=== PATIENT | female | born 1985 | race Caucasian/White ===

== ENCOUNTER 2017-01-20 22:13 | Emergency (ER) | payer SELFPAY ==
[~2017-01-20] VITALS: Ht 157.5 cm; Wt 65.8 kg
[~2017-01-20 22:13] MED LIST: AMOXIL500 MG PO; BACTRIM DS 8001 TAB PO; DICLOFENAC 50MG50 MG PO; FLEXERIL10 MG OR; IBUPROFEN400 MG PO; KEFLEX 500MG.500 MG PO; LOMOTIL 2.5MG.2.5 MG OR; LORTAB 5/500 501 TAB PO; LORTAB 500 MG-71 TAB PO; MOTRIN800 MG PO; NADOLOL 20 MG T20 MG PO; NAPROSYN 500MG500 MG PO; NOMEDS *; TAMIFLU 75MG CA75 MG PO
--- NOTE | 2017-01-20 23:41 | Emergency Room Report ---
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 N Clinical Suspician of Infection? N Mental Status: 1 - Regular (Normal Baseline) Sepsis Risk:Low Sepsis Risk Have you (or family members/close friends) recently traveled outside the [place]? N If Yes, where/when: Have you had exposure to infectious disease within the past month? N TB? Other? Specify: Source patient, RN notes reviewed, police, EMS, old records Exam Limitations no limitations Comment pt with nasal heroin and was given narcamn and is at baseline at this time Cardiac Chest Pain Chest pain indicative of cardiac No Timing/Duration this evening Severity moderate ALLERGIES Coded Allergies: azithromycin (From ZITHROMAX) (Mild, RESP 01/20/17) Home Medications Reported Medications No Known Home Medications History Medical History General CAD? No Angina: No [place]: No Hypertension? No Hyperlipidemia? No CHF? No DVT? No PE? No COPD? No Asthma? No Anemia? No GERD? No Gastric ulcers? No GI Bleed? No Hernia? No Thyroid Problems? No Hypothyroidism? No CVA? No Seizures? No Diabetes? No Renal Insuffiency? No End Stage Renal Disease? No UTI? No Stones? No BPH? No GB Disease: No Nephritic Syndrome? No Asplenia? No Hepatitis? No Sickle Cell Disease? No Arthritis? No Migraines? No Cataracts? No Glaucoma? No MRSA? No HIV? No TB? No Anxiety? Yes Depression? Yes Cancer? No More? 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 Respiratory denies cough, denies shortness of breath, denies wheezing Cardiovascular denies chest pain, denies palpitations, denies syncope Gastrointestinal denies abdominal pain, denies diarrhea, denies vomiting Genitourinary denies: dysuria, frequency, hesitancy, hematuria. Musculoskeletal denies back pain, denies joint pain, denies joint swelling, denies neck pain Skin denies rash Psychiatric/Neurological denies anxiety, denies seizure Physical Exam Vital Signs Vital Signs Date Time Temp Pulse Resp B/P Pulse O2 O2 Flow FiO2 Ox Delivery Rate 01/206 98.3 86 14 124/85 95 01/20 2215 98.3 86 14 124/85 95 - WBC >12,000 or <4,000 or 10% bands? 2 or more SIRS Criteria Met? B/P:124/85 MAP:98 Creatinine >2.0? UA output<0.5ml/kg/hr for 2 hrs? Platelet count >100,000? Lactate >2.0mmol/1? INR >1.2 or PTT > than 60 sec? Evidence of Organ Dysfunction? Provider documented clinical suspician of infection? N Sepsis Criteria Count: 0 Sepsis Risk: Low Sepsis Risk General Appearance no apparent distress Eye Exam - bilateral eye PERRL, bilateral eye EOMI Ear, Nose, Throat normal ENT inspection, no icterus Neck supple Respiratory Status No: respiratory distress. Lung Sounds bilateral: lungs clear. 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 No Results/Orders Orders Procedure Date/time Status URINALYSIS/COMPLETE 01/20 2318 Active DRUG ABUSE SCREEN (TRIAGE) 01/20 2318 Active Departure Departure Time of Disposition 2335 Disposition DC Home or Self Care(routine) Clinical Impression Primary Impression: Intentional heroin overdose Qualifiers: Encounter type: initial encounter Qualified Code: T40.1X2A - Poisoning by heroin, intentional self-harm, initial encounter Secondary Impressions: Medical clearance for incarceration Condition STABLE Patient Instructions DI for Drug Abuse and Drug Addiction Additional Instructions see pcp for follow up Discharge Counseling Counseled pt/family regarding diagnosis, test results, follow up needs, drug counseling,> 3min Prescriptions Current Visit Scripts No Known Home Medications ED Critical Care Critical Care No at [id number]
--- NOTE | 2017-01-20 23:41 | Emergency Room Report ---
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 N Clinical Suspician of Infection? N Mental Status: 1 - Regular (Normal Baseline) Sepsis Risk:Low Sepsis Risk Have you (or family members/close friends) recently traveled outside the [place]? N If Yes, where/when: Have you had exposure to infectious disease within the past month? N TB? Other? Specify: Source patient, RN notes reviewed, police, EMS, old records Exam Limitations no limitations Comment pt with nasal heroin and was given narcamn and is at baseline at this time Cardiac Chest Pain Chest pain indicative of cardiac No Timing/Duration this evening Severity moderate ALLERGIES Coded Allergies: azithromycin (From ZITHROMAX) (Mild, RESP 01/20/17) Home Medications Reported Medications No Known Home Medications History Medical History General CAD? No Angina: No [place]: No Hypertension? No Hyperlipidemia? No CHF? No DVT? No PE? No COPD? No Asthma? No Anemia? No GERD? No Gastric ulcers? No GI Bleed? No Hernia? No Thyroid Problems? No Hypothyroidism? No CVA? No Seizures? No Diabetes? No Renal Insuffiency? No End Stage Renal Disease? No UTI? No Stones? No BPH? No GB Disease: No Nephritic Syndrome? No Asplenia? No Hepatitis? No Sickle Cell Disease? No Arthritis? No Migraines? No Cataracts? No Glaucoma? No MRSA? No HIV? No TB? No Anxiety? Yes Depression? Yes Cancer? No More? 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 Respiratory denies cough, denies shortness of breath, denies wheezing Cardiovascular denies chest pain, denies palpitations, denies syncope Gastrointestinal denies abdominal pain, denies diarrhea, denies vomiting Genitourinary denies: dysuria, frequency, hesitancy, hematuria. Musculoskeletal denies back pain, denies joint pain, denies joint swelling, denies neck pain Skin denies rash Psychiatric/Neurological denies anxiety, denies seizure Physical Exam Vital Signs Vital Signs Date Time Temp Pulse Resp B/P Pulse O2 O2 Flow FiO2 Ox Delivery Rate 01/206 98.3 86 14 124/85 95 01/20 2215 98.3 86 14 124/85 95 - WBC >12,000 or <4,000 or 10% bands? 2 or more SIRS Criteria Met? B/P:124/85 MAP:98 Creatinine >2.0? UA output<0.5ml/kg/hr for 2 hrs? Platelet count >100,000? Lactate >2.0mmol/1? INR >1.2 or PTT > than 60 sec? Evidence of Organ Dysfunction? Provider documented clinical suspician of infection? N Sepsis Criteria Count: 0 Sepsis Risk: Low Sepsis Risk General Appearance no apparent distress Eye Exam - bilateral eye PERRL, bilateral eye EOMI Ear, Nose, Throat normal ENT inspection, no icterus Neck supple Respiratory Status No: respiratory distress. Lung Sounds bilateral: lungs clear. 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 No Results/Orders Orders Procedure Date/time Status URINALYSIS/COMPLETE 01/20 2318 Active DRUG ABUSE SCREEN (TRIAGE) 01/20 2318 Active Departure Departure Time of Disposition 2335 Disposition DC Home or Self Care(routine) Clinical Impression Primary Impression: Intentional heroin overdose Qualifiers: Encounter type: initial encounter Qualified Code: T40.1X2A - Poisoning by heroin, intentional self-harm, initial encounter Secondary Impressions: Medical clearance for incarceration Condition STABLE Patient Instructions DI for Drug Abuse and Drug Addiction Additional Instructions see pcp for follow up Discharge Counseling Counseled pt/family regarding diagnosis, test results, follow up needs, drug counseling,> 3min Prescriptions Current Visit Scripts No Known Home Medications ED Critical Care Critical Care No at [id number]
[2017-01-20 23:45] VITALS: BP 123/73
[2017-01-20 23:59] LABS: URINE BILIRUBIN - DIPSTICK NEGATIVE (NEG); URINE BLOOD NEGATIVE (NEG)
[2017-01-21 00:21] LABS: AMPHETAMINES/METAMPHETAMINES NEGATIVE ng/mL (<1000)
== END 2017-01-20 23:52 | disposition home or self-care (01) ==
LOC: ER 22:13 → EDBD 22:18 → ER 22:18
PROVIDERS: Emergency Medicine
DX: T40.1X2A Poisoning by heroin, intentional self-harm, initial encounter (principal); Z72.0 Tobacco use